=== PATIENT | female | born 1995 ===

== ENCOUNTER 2017-08-11 01:13 | Emergency (ER) | payer OTHER ==
[2017-08-11 01:57] VITALS: BP 132/95
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
== END 2017-08-11 02:19 | disposition left against medical advice (07) ==
LOC: ED 01:13
DX: Z53.21 Procedure and treatment not carried out due to patient leaving prior to being seen by health care provider (principal)
CPT/HCPCS: 36415; 84703